=== PATIENT | male | born 2000 | race Caucasian/White ===

== ENCOUNTER 2022-01-03 09:34 | Emergency (ER) | payer OTHER, BC ==
[2022-01-03 09:46] VITALS: BP 124/78; PULSE 53; TEMP 98.6
[2022-01-03] MEDS ORDERED: KETOROLAC TROMETHAMINE 30 MG/1 ML VIAL IM ONE (10:53)
[2022-01-03] MEDS ORDERED: KETOROLAC TROMETHAMINE 30 MG/1 ML VIAL ONE (11:11)
== END 2022-01-03 11:20 | disposition home or self-care (01) ==
LOC: JER 09:34
PROC: 3E0233Z Introduction of Anti-inflammatory into Muscle, Percutaneous Approach (ICD-10-PCS; principal; 2022-01-03)
DX: R07.0 Pain in throat (principal)
CPT/HCPCS: 0241U-QW; 87070; 93005; 93010; 99284-25